=== PATIENT | female | born 1990 | race Caucasian/White ===

== ENCOUNTER 2016-07-15 15:19 | Emergency (ER) | payer MEDICAID, OTHER | END 2016-07-15 15:59 | disposition home or self-care (01) | DX: H69.83 Other specified disorders of Eustachian tube, bilateral (principal); F17.200 Nicotine dependence, unspecified, uncomplicated; Z79.899 Other long term (current) drug therapy ==

== ENCOUNTER 2016-07-22 15:58 | Emergency (ER) | payer MEDICAID, OTHER ==
[2016-07-22] MEDS ORDERED: DEXAMETHASONE 10 MG/ML VIAL PO STA (16:27)
[2016-07-22] MEDS ORDERED: DEXAMETHASONE 10 MG/ML VIAL ONE (16:34)
[2016-07-22] MEDS ORDERED: CHERRY SYRUP 10 ML UDC PO ONE (16:34)
== END 2016-07-22 17:20 | disposition home or self-care (01) ==
DX: J02.9 Acute pharyngitis, unspecified (principal); F17.200 Nicotine dependence, unspecified, uncomplicated
CPT/HCPCS: 36415; 85025; 86308; 87070; 87430; 87491; 87591; 99283; A9270